=== PATIENT | female | born 1945 | race Caucasian/White ===

== ENCOUNTER → 2022-08-12 | Emergency (ER) | payer OTHER ==
[~2022-08-12] VITALS: Ht 152.4 cm; Wt 47.6 kg
[~2022-08-12] MED LIST: IRBESARTAN75 MG; TOPROL XL100 M1 PO
== END | disposition home or self-care (01) ==
LOC: ER 09:45
DX: B34.9 Viral infection, unspecified (principal); I10 Essential (primary) hypertension; Z88.8 Allergy status to other drugs, medicaments and biological substances; Z20.822 Contact with and (suspected) exposure to COVID-19